=== PATIENT | male | born 1995 | race Hispanic/Latino ===

== ENCOUNTER 2025-06-20 11:34 | Emergency (ER) | payer OTHER ==
[~2025-06-20] VITALS: Ht 172.7 cm; Wt 71.3 kg
[2025-06-20] MEDS: IBUPROFEN 600 MG TAB PO ONE (14:08)
[2025-06-20 15:19] VITALS: BP 135/82; TEMP 98.6; O2SAT 100
== END 2025-06-20 15:29 | disposition home or self-care (01) ==
LOC: M ED 11:34
DX: S93.401A Sprain of unspecified ligament of right ankle, initial encounter (principal); X50.0XXA Overexertion from strenuous movement or load, initial encounter; Y92.89 Other specified places as the place of occurrence of the external cause; Y93.89 Activity, other specified; Y99.1 Military activity

== ENCOUNTER 2025-07-18 15:10 | Emergency (ER) | payer OTHER ==
[~2025-07-18] VITALS: Ht 172.7 cm; Wt 74.2 kg
[2025-07-18] MEDS ORDERED: [UNRECOGNIZED DRUG - CODE] PO (15:18)
[2025-07-18] MEDS ORDERED: METH-1165 PO (19:30)
[2025-07-18] MEDS: NAPROXEN 250 MG TAB PO ONE (19:34)
[2025-07-18 19:38] VITALS: BP 124/67; TEMP 97.8; O2SAT 100
== END 2025-07-18 19:40 | disposition home or self-care (01) ==
LOC: M ED 15:10
DX: S39.012A Strain of muscle, fascia and tendon of lower back, initial encounter (principal); X50.0XXA Overexertion from strenuous movement or load, initial encounter; Y92.009 Unspecified place in unspecified non-institutional (private) residence as the place of occurrence of the external cause; Y93.89 Activity, other specified; Y99.9 Unspecified external cause status; Z79.1 Long term (current) use of non-steroidal anti-inflammatories (NSAID); Z79.899 Other long term (current) drug therapy